=== PATIENT | male | born 1985 | race Caucasian/White ===

== ENCOUNTER → 2023-12-26 07:03 | Outpatient (CLI) | payer OTHER, SELFPAY ==
--- NOTE | 2023-12-26 07:06 | DI.MRI.S_ITS ---
PROCEDURE: MR LUMBAR SPINE WO CON INDICATIONS: Low back pain, unspecified TECHNIQUE: Noncontrast sagittal T1 spin echo and T2 fast echo, sagittal STIR, and T2 fast spin echo through the lumbar spine. In cases with scoliosis, additional coronal T2 fast spin echo may be performed. COMPARISON: None. FINDINGS: Image quality: Excellent. Alignment and Curvature: There is normal bony alignment. Bone Marrow: Marrow is of normal overall signal. No acute vertebral body compression fractures. Spinal Cord: Conus medullaris terminates at the T12-L1 level. Visualized cord demonstrates normal signal and size. Paraspinous Soft Tissues: No paravertebral masses. T12-L1: Normal appearance. L1-L2: Normal appearance. L2-L3: Very mild facet hypertrophy. No canal stenosis or foraminal stenosis. L3-L4: Very mild facet hypertrophy. No canal stenosis or foraminal stenosis. L4-L5: Facet hypertrophy. Mild canal stenosis. No significant foraminal stenosis. L5-S1: Right posterior lateral annulus tear plus disc bulge. Disc material abuts the right S1 nerve root in the right lateral recess. Reference axial T2 images 33 and 34 of series 5. Facet hypertrophy. No canal stenosis. [id number] right foraminal stenosis. IMPRESSION: 1. Multilevel underlying facet arthropathy. 2. Mild canal stenosis at L4-L5. 3. At L5-S1, there is right posterior lateral annulus tear plus disc bulge. Disc material abuts the right S1 nerve root. This can potentially result in right sciatica symptoms. Dictated by: Raul Bishop M.D. on 12/26/2023 at 9:38 Approved by: Raul Bishop M.D. on 12/26/2023 at 9:49
== END ==
LOC: MRI 07:05
DX: M47.816 Spondylosis without myelopathy or radiculopathy, lumbar region (principal); M47.817 Spondylosis without myelopathy or radiculopathy, lumbosacral region; M48.061 Spinal stenosis, lumbar region without neurogenic claudication; M48.07 Spinal stenosis, lumbosacral region; M51.37 Other intervertebral disc degeneration, lumbosacral region; M54.50 Low back pain, unspecified
CPT/HCPCS: 72148